=== PATIENT | male | born 1965 | race Hispanic/Latino ===

== ENCOUNTER → 2017-06-28 | Outpatient (CLI) | payer OTHER ==
--- NOTE | 2017-06-28 12:01 | Diagnostic Imaging Report ---
Indication: Palpable lump within the left neck for 15 years. Comparison: None. Discussion: Limited targeted sonographic evaluation of the left neck soft tissues was performed. There is an oval-shaped hypoechoic mildly heterogenous solid mass within the superficial soft tissues which measures 2.0 x 0.9 x 2.0 cm. Mass shows no internal color Doppler blood flow. Findings are nonspecific though likely represents a small lipoma. This is not characteristic of an abnormal lymph node. Impression: 1. Avascular solid mass within the superficial soft tissues of the left neck, indeterminate though likely represents a lipoma. Dictated by: Dictated on workstation # [id number]
== END ==
LOC: RAD 10:48
PROVIDERS: ATTEND Surgery
DX: R22.1 Localized swelling, mass and lump, neck (principal)
CPT/HCPCS: 76536

== ENCOUNTER 2017-07-05 10:33 | Outpatient (CLI) | payer OTHER ==
[~2017-07-05] VITALS: Wt 70.9 kg
[2017-07-05 10:48] VITALS: BP 122/67
[2017-07-05] MEDS ORDERED: GEMF600T3 PO (11:08)
[2017-07-05] MEDS ORDERED: LISI10TA2 PO (11:08)
== END 2017-07-05 12:23 | disposition home or self-care (01) ==
LOC: PREOP 10:33
PROVIDERS: ATTEND Surgery
DX: Z01.818 Encounter for other preprocedural examination (principal); Z11.2 Encounter for screening for other bacterial diseases; R22.1 Localized swelling, mass and lump, neck
CPT/HCPCS: 87081

== ENCOUNTER 2017-07-11 08:30 | Day surgery (SDC) | payer OTHER ==
[~2017-07-11] VITALS: Ht 172.7 cm; Wt 70.9 kg
[~2017-07-11 08:30] MED LIST: GEMF600T3 PO; LISI10TA2 PO
[2017-07-11] MEDS ORDERED: BUPIVACAINE 0.5% 30 ML (SENSORCAINE) VIAL ONE (08:53)
[2017-07-11] MEDS ORDERED: LIDOCAINE 1% INJ 20 ML (XYLOCAINE) VIAL ONE (08:54)
[2017-07-11] MEDS ORDERED: ONDANSETRON 4 MG/2 ML (SDV) Z0FRAN ONE (08:55)
[2017-07-11] MEDS ORDERED: MIDAZOLAM 2 MG/2 ML (VERSED) VIAL ONE (08:55)
[2017-07-11] MEDS ORDERED: PROPOFOL INJECTION 50 ML IV ONE (08:55)
[2017-07-11] MEDS ORDERED: NS (IVPB) 50 ML ONE (08:58)
[2017-07-11] MEDS ORDERED: LACTATED RINGERS 1,000 ML IV ONE (08:58)
[2017-07-11] MEDS ORDERED: ceFAZolin 1,000 MG (ANCEF) VIAL ONE (08:58)
[2017-07-11] MEDS ORDERED: fentaNYL INJECTION 100 MCG/2 ML AMP ONE (08:59)
[2017-07-11] MEDS ORDERED: LACTATED RINGERS 1,000 ML IV PRN (09:03)
--- NOTE | 2017-07-11 09:17 | Progress Note-Pre Operative ---
Pre-Operative Progress Note H&P Reviewed The H&P was reviewed, patient examined and no changes noted. Date Seen by Provider: Jul 11, 2017 Time Seen by Provider: 09:16 Date H&P Reviewed: Jul 11, 2017 Time H&P Reviewed: 09:17 Pre-Operative Diagnosis: neck mass BAY JACQUES DO Jul 11, 2017 9:17 am
[2017-07-11] MEDS ORDERED: SEVOFLURANE (ULTANE) 15 ML INHAL SOLN ONE (09:30)
[2017-07-11] MEDS ORDERED: ceFAZolin 1 GM/NS 50 ML IVPB IV ONE ×2 (09:30)
[2017-07-11] MEDS ORDERED: CATHETER FLUSH 10 ML SYR IV PRN (09:30)
--- NOTE | 2017-07-11 09:46 | Progress Note-Post Operative ---
Post-Operative Progess Note Surgeon (s)/Ornamental Ironworker (s) Surgeon BAY JACQUES DO Ornamental Ironworker: na Pre-Operative Diagnosis neck mass Post-Operative Diagnosis cyst of neck Procedure & Operative Findings Date of Procedure 07/11/17 Procedure Performed/Findings excision neck cyst 2.5x1.8cm Anesthesia Type general Estimated Blood Loss Estimated blood loss (mL): minimal Specimens/Packing Specimens Removed cyst of neck BAY JACQUES DO Jul 11, 2017 9:46 am
--- NOTE | 2017-07-11 09:48 | Discharge Inst-Simple/Standard ---
Discharge Inst-Standard Patient Instructions/Follow Up Plan of Care/Instructions/FU: 2 weeks Tyler Activity as Tolerated: Yes Discharge Diet: Regular Diet Other Inst to Patient Follow up Appt: Make appointment for 2 week. Instructions: No strenuous activity. May shower in 24 hours, no tub bath or soaking. Use incentive spirometer at home as directed. No Smoking Skin/Wound Care: May remove bandages in 24 hours. You need to leave the white strips over incision on they will fall off on their own. Symptoms to Report: Appetite Changes, Extremity Discoloration, Numbness/Tingling, Swelling Increased , Bleeding Excessive, Eyesight Changes, Pain Increased, Urine Color Change, Constipation(Persistent), Fever over 101 degree F, Pain/Pressure in chest, Urinating Difficulty, Cough Up/Vomit Blood, Heart Beat Irreg/Pounding, Pain/ Pressure in jaw, Vaginal Bleeding Increase, Cramps in feet or legs, Lightheadedness, Pain/Pressure in shoulder, Diarrhea(Persistent), Memory Changes Suddenly, Questions/Concerns, Weight gain consecutive days, Dizziness/ Fainting, Nausea/Vomiting, Shortness of Breath, Weight gain over 2 pounds If questions or concerns contact your physician Or seek help at emergency department. BAY JACQUES DO Jul 11, 2017 9:48 am
[2017-07-11] MEDS ORDERED: ONDANSETRON 4 MG/2 ML (SDV) Z0FRAN IVP PRN (10:00)
[2017-07-11] MEDS ORDERED: morphine INJ 10 MG/ML 1ML (SYR OR VIAL) IVP PRN (10:00)
[2017-07-11 10:01] VITALS: BP 132/82
[2017-07-11 10:30] VITALS: BP 127/83
[2017-07-11 11:00] VITALS: BP 124/77
[2017-07-11 11:30] VITALS: BP 128/78
[2017-07-11 12:10] VITALS: BP 128/78
--- NOTE | 2017-07-11 15:55 | OPERATIVE REPORT ---
DATE OF SERVICE: 07/11/2017 PREOPERATIVE DIAGNOSIS: Neck mass. POSTOPERATIVE DIAGNOSIS: Cyst of neck. PROCEDURE PERFORMED: Excision of neck cyst 2.5 x 1.8 cm. SURGEON: Bay Scott DO. ANESTHESIA: General. ESTIMATED BLOOD LOSS: Minimal. COMPLICATIONS: None. INDICATIONS: The patient is a 51-year-old male with a neck mass that has been there for quite some time. It is suspicious for cyst. He was explained risks and benefits of having an excise. He understands and wishes to proceed with procedure. Consent was signed in the chart. PROCEDURE IN DETAIL: The patient was taken to the operating suite, was prepped and draped in sterile fashion. Surgical pause was performed. Using a 15-blade scalpel, an incision was made over the palpable mass. The cyst capsule was able to be visualized then dissected around. A small tear on the anterior portion was made and there is cystic material within the capsule. The cyst was grasped, elevated and dissected around all the way down to the base. The cyst was completely removed. A time of tissue was adhered to this, which a smaller vessel was oozing, so a 4-0 tie was used to ligate. The wound was then irrigated with copious amounts of irrigation. Local anesthetic of 0.5% Marcaine and 1% lidocaine 50:50 ratio was used to anesthetize the area. Skin was then closed using 4-0 Vicryl in a running subcuticular fashion. The area was then washed and dried. Mastisol and Steri-Strips were applied. Sterile bandages were applied. The patient tolerated the procedure well without any complications and was taken to the recovery room in stable condition. Job ID: [id number] DocumentID: [id number] Dictated Date: 07/11/2017 09:51:06 Packaging Technician Date: 07/11/2017 15:26:47 Dictated By: BAY SCOTT DO
== END 2017-07-11 12:10 | disposition home or self-care (01) ==
LOC: SDC 08:30
PROVIDERS: ATTEND Surgery
DX: L72.0 Epidermal cyst (principal); I10 Essential (primary) hypertension; Z79.899 Other long term (current) drug therapy
CPT/HCPCS: 88304